=== PATIENT | female | born 2000 | race Two or more races ===

== ENCOUNTER 2024-11-06 00:38 | Emergency (ER) | payer MEDICAID, OTHER ==
[~2024-11-06] VITALS: Ht 160 cm; Wt 62.6 kg
[2024-11-06 07:25] VITALS: BP 110/80; TEMP 98.4; O2SAT 98
== END 2024-11-06 07:26 | disposition home or self-care (01) ==
LOC: ER 00:42
DX: F10.129 Alcohol abuse with intoxication, unspecified (principal); Z60.2 Problems related to living alone; Z79.899 Other long term (current) drug therapy; Y90.9 Presence of alcohol in blood, level not specified
CPT/HCPCS: 82962-TC